=== PATIENT | female | born 1935 | race Two or more races ===

== ENCOUNTER 2018-07-25 08:24 | Observation (INO) ==
[2018-07-25] MEDS ORDERED: Sod Chloride 0.9% Inj 1,000 ML IV.SIG ONE (08:40)
--- NOTE | 2018-07-25 08:46 | ED ---
HPI General Chief Complaint: Syncope Stated Complaint: Syncope Complaint Time Seen by Provider: 07/25/18 08:31 Source: patient Mode of arrival: ambulatory Limitations: no limitations History of Present Illness HPI narrative: Patient is an 83-year-old female with history of hypertension, hyperlipidemia, asthma who presents to the emergency room after she had a syncopal episode today. Patient was working at [employer] and was at her desk and all of a sudden felt horrible. Patient reports that she went to the bathroom and sat down on the toilet and called her staffing program manager over. Clip [employer] Hanger Attacher reports that patient did had a syncopal, reports that when she awoke, she appeared confused. Denies any trauma to head/neck. Patient reports that she does not remember having a syncopal episode or being confused, patient reports that she just remembers feeling horrible. Patient denies any headache or dizziness, denies any chest pain or shortness of breath. Patient denies any abdominal pain, denies any nausea vomiting or diarrhea. Patient with no fever or chills, no other complaints. Patient reports that she currently feels 100% better. Reports that she has never felt like this in the past. Related Data Home Medications Medication Instructions Recorded Confirmed albuterol sulfate [Ventolin HFA] 1 puff INHALATION Q4-6H PRN 07/25/18 07/25/18 calcium carbonate-vitamin D3 1 tab PO Q12H 07/25/18 07/25/18 [Calcium 600 + D(3)] carvedilol [Coreg] 3.125 mg PO BID 07/25/18 07/25/18 coQ10 (ubiquinol) 100 mg PO DAILY 07/25/18 07/25/18 famotidine 40 mg PO DAILY 07/25/18 07/25/18 ipratropium-albuterol 3 ml INHALATION BID PRN 07/25/18 07/25/18 levothyroxine [Synthroid] 100 mcg PO DAILY 07/25/18 07/25/18 lorazepam 0.5 mg PO BID 07/25/18 07/25/18 multivitamin 1 tab PO DAILY 07/25/18 07/25/18 potassium chloride [Klor-Con 10] 10 meq PO DAILY 07/25/18 07/25/18 simvastatin 40 mg PO QPM 07/25/18 07/25/18 Allergies Allergy/AdvReac Type Severity Reaction Status Date / Time No Known Allergies Allergy Uncoded 08/20/14 08:14 Review of Systems ROS: all other systems reviewed are negative [facility] Medical History Medical History Asthma (Acute) High cholesterol (Acute) Hypertension (Acute) Surgical History Surgical History History of nephrectomy (Acute) Social History Social History Substance History: No History of Abuse Smoking Status: Never smoker How Often Do You Have a Drink Containing Alcohol: Never Recent Out of Country Travel within the Last 8 Weeks: No Immunization History Tetanus Immunization: <5 Years Exam Narrative Exam Narrative: GENERAL: NAD SKIN: Focused skin assessment warm/dry. HEAD: Atraumatic. Normocephalic. EYES: Pupils equal and round. No scleral icterus. No injection or drainage. ENT: No nasal bleeding or discharge. Mucous membranes pink and moist. NECK: Trachea midline. No JVD. CARDIOVASCULAR: Regular rate and rhythm. No murmur appreciated. RESPIRATORY: No accessory muscle use. Clear to auscultation. Breath sounds equal bilaterally. GASTROINTESTINAL: Abdomen soft, non-tender, nondistended. Hepatic and splenic margins not palpable. MUSCULOSKELETAL: No obvious deformities. No clubbing. No cyanosis. No edema. NEUROLOGICAL: Awake and alert. No obvious cranial nerve deficits. Motor grossly within normal limits. Normal speech. CN 2-12 grossly intact with no neurological deficits PSYCHIATRIC: Appropriate mood and affect; insight and judgment normal. Course Initial Documented Vital Signs Temperature 98.0 F 07/25/18 08:30 Pulse Rate 86 07/25/18 08:30 Respiratory Rate 18 07/25/18 08:30 Blood Pressure 131/58 L 07/25/18 08:30 Pulse Oximetry 99 07/25/18 08:30 Last Documented Vital Signs Temperature 98.0 F 07/25/18 08:30 Pulse Rate 86 07/25/18 08:30 Respiratory Rate 18 07/25/18 08:30 Blood Pressure 131/58 L 07/25/18 08:30 Pulse Oximetry 98 07/25/18 09:26 Medical Decision Making MDM Narrative Medical decision making narrative: During the course of the patients emergency department visit, the patients history, examination, and differential diagnosis were reviewed with the patient. The patient was placed on a court recording monitor with oximetry and frequent blood pressure monitoring. The patient had an IV access obtained and blood work sent for analysis. The patient was initially provided IVF The patients laboratory studies were reviewed as well as radiology studies Patient initial EKG showed normal sinus rhythm at 70 bpm, patient appears to be going to paroxysmal atrial fibrillation - she does not have a history of this. I am repeating her EKG right now, I do think that patient had a syncopal episode due to this paroxysmal atrial fibrillation. Patient understands need to be admitted to the hospital at this time for further workup and observation. EKG at 1037 shows atrial fib at 137 bpm, QT/QTc 155/235. i was going to order IV cardizem for HR control but she converted back to NSR at 85bpm. Aspirin was given to patient Case reviewed with Dr. Savage who accepts pt to service Medical Screen Exam Complete: Yes Emergency Medical Condition: Yes Differential Diagnosis Differential Diagnosis: ACS, arrythmia, electrolyte abnormality, ich, cva, tia Medical Records Medical records reviewed: Yes I reviewed the patient's medical records. Lab Data Result diagrams: 07/25/18 09:00 07/25/18 09:00 Lab Results 07/25/18 07/25/18 07/25/18 Range/Units 09:00 09:00 09:00 WBC 7.7 (4.0-11.0) th/mm3 RBC 3.88 L (4.00-5.30) mil/mm3 Hgb 12.0 (11.6-15.3) gm/dL Hct 36.3 (35.0-46.0) % MCV 93.6 (80.0-100.0) fL MCH 30.9 (27.0-34.0) pg MCHC 33.0 (32.0-36.0) % RDW 14.9 (11.6-17.2) % Plt Count 345 (150-450) th/mm3 MPV 9.3 (7.0-11.0) fL Neut % (Auto) 60.1 (16.0-70.0) % Lymph % (Auto) 29.4 (9.0-44.0) % Taylor % (Auto) 8.1 H (0.0-8.0) % Eos % (Auto) 1.6 (0.0-4.0) % Baso % (Auto) 0.8 (0.0-2.0) % Neut # (Auto) 4.6 (1.8-7.7) th/mm3 Lymph # (Auto) 2.2 (1.0-4.8) th/mm3 Taylor # (Auto) 0.6 (0.0-0.9) th/mm3 Eos # (Auto) 0.1 (0.0-0.4) th/mm3 Baso # (Auto) 0.1 (0.0-0.2) th/mm3 WBC Differential . Differential Comment Auto diff final PT 11.8 H (9.8-11.6) sec INR 1.2 Ratio APTT 25.7 (24.3-30.1) sec Sodium 136 (136-145) meq/L Potassium 4.3 (3.5-5.1) meq/L Chloride 102 (98-107) meq/L Carbon Dioxide 27.3 (21.0-32.0) meq/L Anion Gap 7 (5-15) meq/L BUN 16 (7-18) mg/dL Creatinine 1.32 H (0.50-1.00) mg/dL Estimated GFR 39 L (>89) mL/min Random Glucose 189 H (74-106) mg/dL Calcium 8.8 (8.5-10.1) mg/dL Troponin I 0.03 (0.02-0.05) ng/mL Imaging Data Radiologist's impression: Chest X-Ray 07/25/18 08:40 CONCLUSION: No acute cardiopulmonary process. Head CT 07/25/18 08:40 CONCLUSION: Negative CT Head non contrast. . ECG Data EKG Prior to Arrival: No Attestation: I personally reviewed and interpreted this ECG as follows: Interpretation: EKG at 0832: NSR at 78bpm, qt/qtc: 335/368, there are pvc's, no acute changes Discharge Plan Discharge Disposition Patient Disposition: 30 Still Patient Discharge Condition Condition: Fair Discharge Details Diagnosis: Syncope and collapse, Paroxysmal A-fib Physicians Team ED Provider: Kyleigh Presley Primary Care Provider: UNKNOWN, Rxs /Orders / Referrals /Forms Prescriptions: No Action multivitamin Tablet 1 tab PO DAILY RF: 0 ipratropium-albuterol 0.5 mg-3 mg(2.5 mg base)/3 mL Solution For Nebulization 3 ml INHALATION BID PRN (Reason: Shortness Of Breath) RF: 0 famotidine 40 mg Tablet 40 mg PO DAILY RF: 0 potassium chloride [Klor-Con 10] 10 mEq Tablet Extended Release 10 meq PO DAILY RF: 0 simvastatin 40 mg Tablet 40 mg PO QPM RF: 0 carvedilol [Coreg] 3.125 mg Tablet 3.125 mg PO BID RF: 0 levothyroxine [Synthroid] 100 mcg Tablet 100 mcg PO DAILY RF: 0 lorazepam 0.5 mg Tablet 0.5 mg PO BID RF: 0 albuterol sulfate [Ventolin HFA] 90 mcg/actuation Hfa Aerosol Inhaler 1 puff INHALATION Q4-6H PRN (Reason: Shortness Of Breath) RF: 0 calcium carbonate-vitamin D3 [Calcium 600 + D(3)] 600 mg(1,500mg) -400 unit Tablet 1 tab PO Q12H RF: 0 coQ10 (ubiquinol) 100 mg Capsule 100 mg PO DAILY RF: 0 Status ED Status: Pending Admission
--- NOTE | 2018-07-25 08:56 | CT ---
EXAM DATE: 07/25/2018 8:43 AM EDT AGE/SEX: 83 years / Female INDICATIONS: Syncope. CLINICAL DATA: This is the patient's initial encounter. Patient reports that signs and symptoms have been present for 1 day and indicates a pain score of 0/10. MEDICAL/SURGICAL HISTORY: Asthma. Hypertension. None. RADIATION DOSE: 34.17 CTDI (mGy) COMPARISON: No prior exams available for comparison. TECHNIQUE: CT of the head without contrast. Using automated exposure control and adjustment of the mA and/or kV according to patient size, radiation dose was kept as low as reasonably achievable to ob tain optimal diagnostic quality images. DICOM format image data is available electronically for revi ew and comparison. FINDINGS: Cerebrum: The ventricles are normal for age. No evidence of midline shift, mass lesion, hemorrhage or acute infarction. No extraaxial fluid collections are seen. Posterior Fossa: The cerebellum and brainstem are intact. The 4th ventricle is midline. The cerebe llopontine angle is unremarkable. Extracranial: The visualized portion of the orbits is intact. Skull: The calvaria is intact. No evidence of skull fracture. CONCLUSION: Negative CT Head non contrast. . Electronically signed by: Casey Mina MD 07/25/2018 8:55 AM EDT
[2018-07-25 09:18] LABS: Baso # (Auto) 0.1 th/mm3 (0.0-0.2); Baso % (Auto) 0.8 % (0.0-2.0); Eos # (Auto) 0.1 th/mm3 (0.0-0.4); Eos % (Auto) 1.6 % (0.0-4.0); Hematocrit 36.3 % (35.0-46.0); Lymph # (Auto) 2.2 th/mm3 (1.0-4.8); Lymph % (Auto) 29.4 % (9.0-44.0); Mean Corpuscular Hemoglobin 30.9 pg (27.0-34.0); Mean Corpuscular Volume 93.6 fL (80.0-100.0); Mean Platelet Volume 9.3 fL (7.0-11.0); Mono # (Auto) 0.6 th/mm3 (0.0-0.9); Mono % (Auto) 8.1 % (0.0-8.0); Neut # (Auto) 4.6 th/mm3 (1.8-7.7); Neut % (Auto) 60.1 % (16.0-70.0); Platelet Count 345 th/mm3 (150-450); Red Blood Count 3.88 mil/mm3 (4.00-5.30); Red Cell Distribution Width 14.9 % (11.6-17.2); White Blood Count 7.7 th/mm3 (4.0-11.0)
[2018-07-25 09:26] LABS: Activated Partial Thrombo Time 25.7 sec (24.3-30.1); INR 1.2 Ratio; Prothrombin Time 11.8 sec (9.8-11.6)
[2018-07-25 09:33] LABS: Calcium 8.8 mg/dL (8.5-10.1); Carbon Dioxide 27.3 meq/L (21.0-32.0); Potassium 4.3 meq/L (3.5-5.1)
[2018-07-25 09:37] LABS: Troponin I 0.03 ng/mL (0.02-0.05)
--- NOTE | 2018-07-25 09:46 | XR ---
EXAM DATE: 07/25/2018 8:40 AM EDT AGE/SEX: 83 years / Female INDICATIONS: Shortness of breath and dizziness. CLINICAL DATA: This is the patient's initial encounter. Patient reports that signs and symptoms have been present for 1 day and indicates a pain score of 0/10. MEDICAL/SURGICAL HISTORY: Hypercholesterolemia. Chronic obstructive pulmonary disease. None. COMPARISON: No prior exams available for comparison. FINDINGS: A single AP view of the chest demonstrates the lungs to be symmetrically aerated without evidence of mass, infiltrate or effusion. The cardiomediastinal contours are unremarkable. Osseous structures a re intact with a dextroscoliosis of the dorsal spine with associated degenerative spurring. Bilateral breast augmentation with capsular calcification. CONCLUSION: No acute cardiopulmonary process. Electronically signed by: Herve Yao MD 07/25/2018 9:45 AM EDT
[2018-07-25] MEDS ORDERED: Aspirin 325 MG Tablet PO ONE (10:32)
[2018-07-25] MEDS ORDERED: Sod Chloride 0.9% Inj 1,000 ML IV.CONT SCH (12:00)
--- NOTE | 2018-07-25 13:32 | US ---
EXAM DATE: 07/25/2018 12:00 AM EDT AGE/SEX: 83 years / Female INDICATIONS: Syncope. CLINICAL DATA: This is the patient's initial encounter. Patient reports that signs and symptoms have been present for 1 day and indicates a pain score of 0/10. MEDICAL/SURGICAL HISTORY: Hypertension. Hypercholesterolemia. Asthma. . Nephrectomy. COMPARISON: No prior exams available for comparison. VELOCITY PARAMETERS: ICA/CCA Ratio: Right 1.5 , Left 1.2 ICA: Right 97 cm/sec, Left 85 cm/sec CCA: Right 66 cm/sec, Left 68 cm/sec ECA: Right 66 cm/sec, Left 71 cm/sec Vertebral: Right 48 cm/sec antegrade, Left 48 cm/sec antegrade FINDINGS: Right Carotid: Mild arteriosclerotic plaque is visualized.The waveforms are within normal limits. Left Carotid: Mild arteriosclerotic plaque is visualized. The waveforms are within normal limits. Other: None. CONCLUSION: 1. Right Internal Carotid Artery: Mild visible plaque without significant stenosis. 2. Left Internal Carotid Artery: Mild visible plaque without significant stenosis. Electronically signed by: Delfino Mckeon MD 07/25/2018 1:31 PM EDT
--- NOTE | 2018-07-25 15:33 | P.HPIM ---
History of Present Illness Service: [facility] Hospitalist Primary Care Physician: UNKNOWN Chief Complaint: Syncope History of Present Illness: 83-year-old female with a medical history significant for hypertension, hypothyroidism, hyperlipidemia, and asthma sent to the emergency room after a witnessed syncopal episode today. 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 She went to the bathroom sat down. Her eligibility manager went to check on her and she eventually had a syncopal episode. She regained consciousness within a few minutes. She does not remember the actual episode. In the emergency room, the patient is noting to have paroxysmal atrial fibrillation. Her heart rate is ranging anywhere from the 150s and would spontaneously convert to sinus rhythm with rate in the 80s. She denies any chest pain or shortness of breath. Currently she reports she is feeling great and is ready to go home. She denies any history of atrial fibrillation. She states she follows with a deck builder and has had Holter monitors before. She takes carvedilol twice daily for hypertension. She reports compliance with this medication. She took it earlier this morning around 6 and a syncopal event occurred about 3 hours later. - Diagnosis (1) Hypertension (2) Hyperlipidemia (3) Hypothyroidism (4) Syncope and collapse (5) Paroxysmal A-fib Review of Systems All other systems reviewed negative except as stated in HPI [facility] - History History Provided By: Patient - Medical History Medical History: Medical History (Last Updated 07/25/18 @ 15:20 by Katelynn Savage MD) Asthma High cholesterol Hypertension Hypothyroidism - Surgical History Surgical History: Surgical History (Last Reviewed 07/25/18 @ 15:19 by Katelynn Savage MD) History of nephrectomy - Family History Family History: Family History (Last Updated 07/25/18 @ 15:19 by Katelynn Savage MD) Other Family history reviewed with no changes - Tobacco History Smoking Status: Never smoker - Alcohol History How Often Do You Have a Drink Containing Alcohol: Never - Substance Use History Substance History: No History of Abuse - Travel History Recent Travel Out of the Country Within the Last 8 Weeks: No - Immunization History Tetanus Immunization: <5 Years Medications and Allergies Active Medications: Active Medications Sodium Chloride (Ns Inj) 1,000 mls @ 100 mls/hr IV.CONT .Q10H DARCY Stop: 07/25/18 21:59 Last Admin: 07/25/18 13:35 Dose: 100 mls/hr Sodium Chloride (Ns Flush) 2 ml IV.FLUSH PRN PRN PRN Reason: FLUSH AFTER USING IV ACCESS Allergies Allergy/AdvReac Type Severity Reaction Status Date / Time No Known Allergies Allergy Uncoded 08/20/14 08:14 Home Medications Medication Instructions Recorded Confirmed Type albuterol sulfate [Ventolin HFA] 1 puff INHALATION Q4-6H PRN 07/25/18 07/25/18 History calcium carbonate-vitamin D3 1 tab PO Q12H 07/25/18 07/25/18 History [Calcium 600 + D(3)] carvedilol [Coreg] 3.125 mg PO BID 07/25/18 07/25/18 History coQ10 (ubiquinol) 100 mg PO DAILY 07/25/18 07/25/18 History famotidine 40 mg PO DAILY 07/25/18 07/25/18 History ipratropium-albuterol 3 ml INHALATION BID PRN 07/25/18 07/25/18 History levothyroxine [Synthroid] 100 mcg PO DAILY 07/25/18 07/25/18 History lorazepam 0.5 mg PO BID 07/25/18 07/25/18 History multivitamin 1 tab PO DAILY 07/25/18 07/25/18 History potassium chloride [Klor-Con 10] 10 meq PO DAILY 07/25/18 07/25/18 History simvastatin 40 mg PO QPM 07/25/18 07/25/18 History Exam Vital signs: Vital Signs 07/25/18 08:30 07/25/18 09:26 07/25/18 13:36 Temperature 98.0 F Pulse Rate 86 93 H Respiratory Rate 18 16 Blood Pressure 131/58 L 168/73 H Pulse Oximetry 99 98 Intake & Output 07/24/18 07/25/18 07/25/18 18:59 06:59 18:59 Intake Total 1000 / 1000 Balance 1000 / 1000 Intake: IV 1000 / 1000 NS Inj 1,000 ML @ Wide Open IV. 1000 / 1000 SIG BOLUS ONE Rx#:[id number] Narrative: CONSTITUTIONAL/GENERAL: Pleasant elderly female in no acute distress. Vital signs reviewed SKIN: No jaundice, rashes, or concerning lesions. Not diaphoretic. HEAD: Atraumatic. Normocephalic. EYES: Pupils equal and round and reactive. Extra ocular motions are intact. No scleral icterus. No injection or drainage. ENT: Hearing grossly normal. Nose without drainage. Throat without visible erythema, exudates, masses, or lesions. NECK: Trachea midline. Neck is supple, non-tender. No palpable thyroid enlargement or nodularity. CARDIOVASCULAR: Normal rate in the 90s and irregular rhythm. Peripheral pulses 2 + and symmetric. RESPIRATORY/CHEST: Symmetric, unlabored respirations. Breath sounds equal and clear to auscultation bilaterally. No wheezes, crackles, rales, or rhonchi. GASTROINTESTINAL: Abdomen soft, non-tender, non-distended. No hepato- splenomegaly, or palpable masses. No guarding. Bowel sounds present. MUSCULOSKELETAL: Extremities without clubbing, cyanosis, or edema. No joint tenderness or effusion noted. No calf tenderness. No mottling or clubbing. NEUROLOGICAL: Awake and alert. Motor and sensory grossly within normal limits. Follows commands. Move all extremities spontaneously. No focal deficits. PSYCHIATRIC: No obvious mood problems. No apparent hallucinations or other psychotic thought process. Results - Labs CBC & Chem 7: 07/25/18 09:00 07/25/18 09:00 Labs: Short CBC 07/25/18 Range/Units 09:00 WBC 7.7 (4.0-11.0) th/mm3 Hgb 12.0 (11.6-15.3) gm/dL Hct 36.3 (35.0-46.0) % Plt Count 345 (150-450) th/mm3 [facility] 07/25/18 09:00 Sodium 136 Potassium 4.3 Chloride 102 Carbon Dioxide 27.3 BUN 16 Creatinine 1.32 H Calcium 8.8 Cardiac Enzymes 07/25/18 Range/Units 09:00 Troponin I 0.03 (0.02-0.05) ng/mL - Imaging Impressions Carotid Doppler Study 07/25/18 00:00 CONCLUSION: 1. Right Internal Carotid Artery: Mild visible plaque without significant stenosis. 2. Left Internal Carotid Artery: Mild visible plaque without significant stenosis. Chest X-Ray 07/25/18 08:40 CONCLUSION: No acute cardiopulmonary process. Head CT 07/25/18 08:40 CONCLUSION: Negative CT Head non contrast. . Caprini VTE Risk Assessment Caprini VTE Risk Assessment: Moderate/High Risk (score >= 2) Caprini Risk Assessment Model: Point Value = 1 Point Value = 2 Point Value = 3 Point Value = 5 Age 41-60 Minor surgery BMI > 25 kg/m2 Swollen legs Varicose veins or History of unexplained or recurrent spontaneous Oral contraceptives or hormone replacement Sepsis (< 1 month) Serious lung disease, including pneumonia (< 1 month) Abnormal pulmonary function Acute myocardial infarction Congestive heart failure (< 1 month) History of inflammatory bowel disease Medical patient at bed rest Age 61-74 Arthroscopic surgery Major open surgery (> 45 min) Laparoscopic surgery (> 45 min) Malignancy Confined to bed (> 72 hours) Immobilizing plaster cast Central venous access Age >= 75 History of VTE Family history of VTE Factor V Leiden Prothrombin [id number] Lupus anticoagulant Anticardiolipin antibodies Elevated serum homocysteine Heparin-induced thrombocytopenia Other congenital or acquired thrombophilia Stroke (< 1 month) Elective arthroplasty Hip, pelvis, or leg fracture Acute spinal cord injury (< 1 month) Prophylaxis Regimen: Total Risk Factor Score Risk Level Prophylaxis Regimen 0-1 Low Early ambulation 2 Moderate Order ONE of the following: *Sequential Compression Device (SCD) *Heparin 5000 units SQ BID 3-4 Higher Order ONE of the following medications: *Heparin 5000 units SQ TID *Enoxaparin/Lovenox 40 mg SQ daily (WT < 150 kg, CrCl > 30 mL/min) *Enoxaparin/Lovenox 30 mg SQ daily (WT < 150 kg, CrCl > 10-29 mL/min) *Enoxaparin/Lovenox 30 mg SQ BID (WT < 150 kg, CrCl > 30 mL/min) AND/OR *Sequential Compression Device (SCD) 5 or more Highest Order ONE of the following medications: *Heparin 5000 units SQ TID (Preferred with Epidurals) *Enoxaparin/Lovenox 40 mg SQ daily (WT < 150 kg, CrCl > 30 mL/min) *Enoxaparin/Lovenox 30 mg SQ daily (WT < 150 kg, CrCl > 10-29 mL/min) *Enoxaparin/Lovenox 30 mg SQ BID (WT < 150 kg, CrCl > 30 mL/min) AND *Sequential Compression Device (SCD) Assessment and Plan - Assessment (1) Hypertension Code(s): I10 - Essential (primary) hypertension Status: Acute (2) Hyperlipidemia Code(s): E78.5 - Hyperlipidemia, unspecified Status: Acute (3) Hypothyroidism Code(s): E03.9 - Hypothyroidism, unspecified Status: Acute (4) Syncope and collapse Code(s): R55 - Syncope and collapse Status: Acute (5) Paroxysmal A-fib Code(s): I48.0 - Paroxysmal atrial fibrillation Status: Acute - Plan 83-year-old female here temporarily for work at [employer]. She normally resides in [place] admitted with: Syncope and collapse/paroxysmal atrial fibrillation: EKG reviewed. Currently back in Afib with rate around 90's. BP elevated - Syncopal episode could be secondary to A. fib with RVR. Patient is having paroxysmal episodes and would spontaneously convert back and forth to sinus rhythm -She reports compliance with Coreg which she took earlier this morning. - Hold Coreg. Will start Cardizem at 30 mg Q6hrs while waiting for Cardiology input - [id number] is 4 therefore anticoagulation indicated. Will defer to Cardiology. - Check Carotid US and TSH - Trend Cardiac enzymes. Hypertension: Normally takes Coreg which she took earlier this morning. -Blood pressure increasing. -We will see how she responds to Cardizem. - PRN hydralazine as needed. Probable CKD: Patient has one functioning kidney. Baseline renal functions unknown. - Gentle IV hydration. Follow up labs in AM Hypothyroidism: - Patient reports she has been stable on the same dose of levothyroxine. - Check TSH. Continue levothyroxine. Hyperlipidemia: - Continue statin GI prophylaxis: Stool softener PRN constipation. DVT PPx: Heparin
[2018-07-25] MEDS ORDERED: hydrALAZINE HCl Inj 20 MG/ML Vial IV.PUSH PRN (16:03)
[2018-07-25] MEDS: Heparin - SQ 10,000 UNITS/ML Vial SQ SCH (16:44)
[2018-07-25] MEDS: dilTIAZem 30 MG Tablet PO SCH ×3 (16:44→20:34)
[2018-07-25 17:17] LABS: Thyroid Stimulating Hormone 1.7 uIU/mL (0.358-3.740)
--- NOTE | 2018-07-25 18:30 | P.CONCA ---
History of Present Illness Service: Cardiology Consult date: 07/25/18 Requesting Physician: Katelynn Savage Reason for Consult: Questionable paroxysmal atrial fibrillation Primary Care Provider: UNKNOWN Chief Complaint: Syncope History of Present Illness: This is a very pleasant 83-year-old female with a history of hypertension, hypothyroidism, hyperlipidemia and asthma. She was brought into the emergency department today after a witnessed syncopal episode. She states that she was working on employee benefits and started not feeling well. Upon not feeling well she decided to go to the bathroom and sat down. While in the bathroom her numerical analysis group manager came to check on her and she had a syncopal episode. She is unsure how long she had passed out and does not remember the event. She informed me that recently her high school social studies teacher had placed her on a monitor for 2 weeks but she never received the results. . Current, she denies any CP, pressure, palpitations, dizziness, edema or SOB. Review of Systems All other systems reviewed negative except as stated in HPI [facility] - History History Provided By: Patient - Medical History Medical History: Medical History (Last Updated 07/25/18 @ 15:20 by Katelynn Savage MD) Asthma High cholesterol Hypertension Hypothyroidism - Surgical History Surgical History: Surgical History (Last Reviewed 07/25/18 @ 15:19 by Katelynn Savage MD) History of nephrectomy - Family History Family History: Family History (Last Updated 07/25/18 @ 15:19 by Katelynn Savage MD) Other Family history reviewed with no changes - Tobacco History Second Hand Smoke Exposure: No Smoking Status: Never smoker - Alcohol History How Often Do You Have a Drink Containing Alcohol: Never - Substance Use History Substance History: No History of Abuse - Travel History Recent Travel Out of the Country Within the Last 8 Weeks: No - Immunization History Tetanus Immunization: <5 Years Medications and Allergies Allergies Allergy/AdvReac Type Severity Reaction Status Date / Time No Known Allergies Allergy Uncoded 08/20/14 08:14 Home Medications Medication Instructions Recorded Confirmed Type albuterol sulfate [Ventolin HFA] 1 puff INHALATION Q4-6H PRN 07/25/18 07/25/18 History calcium carbonate-vitamin D3 1 tab PO Q12H 07/25/18 07/25/18 History [Calcium 600 + D(3)] carvedilol [Coreg] 3.125 mg PO BID 07/25/18 07/25/18 History coQ10 (ubiquinol) 100 mg PO DAILY 07/25/18 07/25/18 History famotidine 40 mg PO DAILY 07/25/18 07/25/18 History ipratropium-albuterol 3 ml INHALATION BID PRN 07/25/18 07/25/18 History levothyroxine [Synthroid] 100 mcg PO DAILY 07/25/18 07/25/18 History lorazepam 0.5 mg PO BID 07/25/18 07/25/18 History multivitamin 1 tab PO DAILY 07/25/18 07/25/18 History potassium chloride [Klor-Con 10] 10 meq PO DAILY 07/25/18 07/25/18 History simvastatin 40 mg PO QPM 07/25/18 07/25/18 History Active Medications: Active Medications Albuterol (Ventolin Hfa Inh) 1 puff INH Q4H PRN PRN Reason: SHORTNESS OF BREATH Albuterol (Duoneb Neb (Prn)) 1 ampul NEB BID NEB PRN PRN Reason: Shortness Of Breath Calcium/Vitamin D (Oscal With D 250/125 Mg) 2 tab PO Q12HR [facility] Diltiazem HCl (Cardizem) 30 mg PO QID [facility] Last Admin: 07/25/18 16:44 Dose: 30 mg Famotidine (Pepcid) 40 mg PO DAILY [facility] Heparin Sodium (Porcine) (Heparin Inj) 5,000 units SQ Q12H [facility] Last Admin: 07/25/18 16:44 Dose: 5,000 units Hydralazine HCl (Apresoline Inj) 10 mg IV.PUSH Q6H PRN PRN Reason: SEE LABEL COMMENTS Sodium Chloride (Ns Inj) 1,000 mls @ 100 mls/hr IV.CONT .Q10H [facility] Stop: 07/25/18 21:59 Last Admin: 07/25/18 13:35 Dose: 100 mls/hr Levothyroxine Sodium (Synthroid) 100 mcg PO DAILY@0600 [facility] Lorazepam (Ativan) 0.5 mg PO BID [facility] Multivitamins (Theragran) 1 tab PO DAILY [facility] Pravastatin Sodium (Pravachol) 80 mg PO HS [facility] Sodium Chloride (Ns Flush) 2 ml IV.FLUSH PRN PRN PRN Reason: FLUSH AFTER USING IV ACCESS Exam Vital signs: Vital Signs 10/19/18 08:30 07/25/18 09:26 07/25/18 13:36 Temperature 98.0 F Pulse Rate 86 93 H Respiratory Rate 18 16 Blood Pressure 131/58 L 168/73 H Pulse Oximetry 99 98 07/25/18 16:29 Temperature 97.6 F Pulse Rate 92 H Respiratory Rate 20 Blood Pressure 196/72 H Pulse Oximetry 98 Intake & Output 07/24/18 07/25/18 07/25/18 18:59 06:59 18:59 Intake Total 1000 / 1000 Balance 1000 / 1000 Weight 59.874 kg Intake: IV 1000 / 1000 NS Inj 1,000 ML @ Wide Open IV. 1000 / 1000 SIG BOLUS ONE Rx#:[id number] Other: Weight On Admission 59.874 kg - Constitutional no acute distress - Routine HEENT Exam Head: Present: normocephalic Eye: Present: PERRL ENT: Present: mucous membranes moist - Routine Neck Exam Present: full ROM - Routine Respiratory Exam Present: CTA bilaterally - Routine Cardiovascular Exam Present: S1, S2, tachycardia, irregular rhythm. Absent: murmur, gallop, rubs - Routine Abdominal Exam Present: normoactive bowel sounds - Routine Extremities Exam Present: full ROM, pulses intact, normal capillary refill. Absent: cyanosis, clubbing, edema - Routine Skin Exam Present: intact - Routine Neurological Exam Present: oriented X3 Results 07/25/18 09:00 07/25/18 09:00 Cardiac Enzymes 07/25/18 07/25/18 Range/Units 09:00 14:26 Troponin I 0.03 0.04 (0.02-0.05) ng/mL Coagulation 07/25/18 Range/Units 09:00 PT 11.8 H (9.8-11.6) sec APTT 25.7 (24.3-30.1) sec CBC 07/25/18 Range/Units 09:00 WBC 7.7 (4.0-11.0) th/mm3 RBC 3.88 L (4.00-5.30) mil/mm3 Hgb 12.0 (11.6-15.3) gm/dL Hct 36.3 (35.0-46.0) % Plt Count 345 (150-450) th/mm3 Neut # (Auto) 4.6 (1.8-7.7) th/mm3 Lymph # (Auto) 2.2 (1.0-4.8) th/mm3 [place] # (Auto) 0.6 (0.0-0.9) th/mm3 Eos # (Auto) 0.1 (0.0-0.4) th/mm3 Baso # (Auto) 0.1 (0.0-0.2) th/mm3 Comprehensive Metabolic Panel 07/25/18 Range/Units 09:00 Sodium 136 (136-145) meq/L Potassium 4.3 (3.5-5.1) meq/L Chloride 102 (98-107) meq/L Carbon Dioxide 27.3 (21.0-32.0) meq/L BUN 16 (7-18) mg/dL Creatinine 1.32 H (0.50-1.00) mg/dL Calcium 8.8 (8.5-10.1) mg/dL Intake and Output 07/25/18 07/25/18 07/25/18 06:59 14:59 22:59 Intake Total 1000 / 1000 Balance 1000 / 1000 Intake: IV 1000 / 1000 NS Inj 1,000 ML @ Wide Open IV. 1000 / 1000 SIG BOLUS ONE Rx#:[id number] Other: Weight 59.874 kg Weight On Admission 59.874 kg Patient Weight 07/26/18 06:59 Weight 59.874 kg - Imaging and Cardiology Imaging: Impressions Carotid Doppler Study 07/25/18 00:00 CONCLUSION: 1. Right Internal Carotid Artery: Mild visible plaque without significant stenosis. 2. Left Internal Carotid Artery: Mild visible plaque without significant stenosis. Chest X-Ray 07/25/18 08:40 CONCLUSION: No acute cardiopulmonary process. Head CT 07/25/18 08:40 CONCLUSION: Negative CT Head non contrast. . Assessment and Plan - Assessment (1) Syncope and collapse Code(s): R55 - Syncope and collapse Status: Acute (2) Paroxysmal A-fib Code(s): I48.0 - Paroxysmal atrial fibrillation Status: Acute (3) Hypertension Code(s): I10 - Essential (primary) hypertension Status: Acute (4) Hyperlipidemia Code(s): E78.5 - Hyperlipidemia, unspecified Status: Acute (5) Hypothyroidism Code(s): E03.9 - Hypothyroidism, unspecified Status: Acute - Plan Patient currently in ST with frequent PAC's. Continue to monitor on telemetry. Continue current cardiac treatment plan and adjust as needed. We will continue to follow the patient during her hospitalization. She will follow up with her high school social studies teacher in [facility] after discharge. Patient seen and evaluated by Dr. Gandhi who participated in care, management and decision-making. - Attending Attestation Patient seen and examined. I reviewed and agree with the evaluation and plan as presented. Continue monitoring on telemetry. F/u with her high school social studies teacher in [facility].
[2018-07-25] MEDS: LORazepam 0.5 MG Tablet PO SCH (20:33)
[2018-07-25] MEDS: Calcium/Vitamin D 250/125 MG Tablet PO SCH (20:38)
--- NOTE | 2018-07-25 21:16 | ECG ---
Date Performed: 07/25/2018 Time Performed: 08:32:42 PTAGE: 83 years EKG: Sinus rhythm WITH FREQUENT SUPRAVENTRICULAR PREMATURE COMPLEXES NONSPECIFIC T-WAVE ABNORMALITY ABNORMAL RHYTHM EC G NO PREVIOUS TRACING DOCTOR: Obinna Mcclellan Interpretating Date/Time 07/25/2018 21:15:38
--- NOTE | 2018-07-25 21:18 | ECG ---
Date Performed: 07/25/2018 Time Performed: 10:37:19 PTAGE: 83 years EKG: ATRIAL FIBRILLATION WITH RAPID VENTRICULAR RESPONSE NONSPECIFIC T WAVE CHANGE Compared to p revious tracing, THERE IS A RHYTHM CHANGE FROM Sinus rhythm TO ATRIAL FIBRILLATION. Clinical correlation is recommended ABNORMAL RHYTHM ECG PREVIOUS TRACING : 07/25/2018 08.32 DOCTOR: Obinna Mcclellan Interpretating Date/Time 07/25/2018 21:17:23
[2018-07-26] MEDS ORDERED: Sodium Chloride 0.9% 2 ML Flush PRN IV.FLUSH (01:10)
[2018-07-26 03:13] VITALS: RESP 16
[2018-07-26] MEDS: Heparin - SQ 10,000 UNITS/ML Vial SQ SCH (05:05)
[2018-07-26] MEDS ORDERED: Levothyroxine 100 MCG Tablet PO SCH (06:00)
[2018-07-26] MEDS: LORazepam 0.5 MG Tablet PO SCH (08:40)
[2018-07-26] MEDS: dilTIAZem 30 MG Tablet PO SCH ×2 (08:41→12:43)
[2018-07-26] MEDS: Calcium/Vitamin D 250/125 MG Tablet PO SCH (08:41)
[2018-07-26] MEDS ORDERED: Non-Formulary Drug (Coq10 (Ubiquinol) [Coq10 (Ubiquinol)] 100 MG) PO SCH (09:00)
[2018-07-26] MEDS ORDERED: Famotidine 20 MG Tablet PO SCH (09:00)
[2018-07-26] MEDS ORDERED: Sodium Chloride 0.9% 2 ML Flush BID IV.FLUSH SCH (09:00)
--- NOTE | 2018-07-26 11:29 | P.PN ---
Subjective Interval history: Follow-up for atrial fibrillation with RVR and syncopal episode. Patient reports feeling much better today. She denies any lightheadedness or dizziness. Denies any further syncopal episodes. Denies any chest pain, palpitations, shortness of breath. She has been able in the hallways without difficulty. She wants to go home. Discussed her chads 2 Vasc score of 4 and her risk for stroke, patient agrees to starting anticoagulation. Patient did have episodes of RVR this morning around 10 AM with heart rate in the [id number] , however improved to 70s after receiving oral Cardizem. Physical Exam Vital signs: Vital Signs 07/25/18 13:36 07/25/18 16:29 07/25/18 18:58 Temperature 97.6 F Pulse Rate 93 H 92 H Respiratory Rate 16 20 Blood Pressure 168/73 H 196/72 H 138/81 Pulse Oximetry 98 07/25/18 19:34 07/25/18 23:40 07/26/18 03:11 Temperature 97.7 F 98.5 F 98.5 F Pulse Rate 79 83 82 Respiratory Rate 18 17 16 Blood Pressure 145/63 H 107/55 L 122/60 Pulse Oximetry 96 97 96 07/26/18 08:37 Temperature 98.1 F Pulse Rate 80 Respiratory Rate 16 Blood Pressure 139/85 Pulse Oximetry 96 Intake & Output 07/25/18 07/26/18 07/26/18 18:59 06:59 18:59 Intake Total 1800 / 1800 Balance 1800 / 1800 Weight 59.874 kg 59.874 kg Intake: IV 1800 / 1800 NS Inj 1,000 ML @ 100 mls/hr IV 800 / 800 .CONT .Q10H [facility] Rx#:[id number] NS Inj 1,000 ML @ Wide Open IV. 1000 / 1000 SIG BOLUS ONE Rx#:[id number] Other: # Voids 3 Date of Last Bowel Movement 07/25/18 Weight On Admission 59.874 kg Narrative: GENERAL: Well-nourished, well-developed pleasant elderly female patient in [facility]. Ambulating the hallway. SKIN: Warm and dry. No rash. HEENT: Normocephalic. Atraumatic. Pupils equal and round. Mucous membranes pink and moist. CARDIOVASCULAR: Irregular rate and rhythm. No murmur appreciated. RESPIRATORY: No accessory muscle use. Clear to auscultation. Breath sounds equal bilaterally. GASTROINTESTINAL: Abdomen soft, non-tender, nondistended. Normoactive bowel sounds x4. MUSCULOSKELETAL: No obvious deformities. Extremities without clubbing, cyanosis , or edema. NEUROLOGICAL: Awake and alert. No obvious cranial nerve deficits. Motor grossly within normal limits. Moving all extremities spontaneously. Normal speech. PSYCHIATRIC: Appropriate mood and affect; insight and judgment normal. Results - Labs CBC & Chem 7: 07/25/18 09:00 07/25/18 09:00 Laboratory Results - last 24 hr 07/25/18 07/25/18 07/25/18 09:00 14:26 14:26 Sodium 136 Potassium 4.3 Chloride 102 Carbon Dioxide 27.3 Anion Gap 7 BUN 16 Creatinine 1.32 H Estimated GFR 39 L Random Glucose 189 H Calcium 8.8 Troponin I 0.03 0.04 TSH 1.700 Cancelled 07/25/18 20:57 Sodium Potassium Chloride Carbon Dioxide Anion Gap BUN Creatinine Estimated GFR Random Glucose Calcium Troponin I 0.04 TSH - Imaging Impressions Carotid Doppler Study 07/25/18 00:00 CONCLUSION: 1. Right Internal Carotid Artery: Mild visible plaque without significant stenosis. 2. Left Internal Carotid Artery: Mild visible plaque without significant stenosis. Assessment and Plan - Assessment (1) Hypertension Code(s): I10 - Essential (primary) hypertension Status: Acute (2) Hyperlipidemia Code(s): E78.5 - Hyperlipidemia, unspecified Status: Acute (3) Hypothyroidism Code(s): E03.9 - Hypothyroidism, unspecified Status: Acute (4) Syncope and collapse Code(s): R55 - Syncope and collapse Status: Acute (5) Paroxysmal A-fib Code(s): I48.0 - Paroxysmal atrial fibrillation Status: Acute - Plan 83-year-old female with a medical history significant for hypertension, hypothyroidism, hyperlipidemia, and asthma sent to the emergency room after a witnessed syncopal episode today. 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 The patient lives in [facility]. Syncope and collapse secondary to paroxysmal atrial fibrillation with RVR: Initial EKG showed afib with RVR HR 137bpm, then converted spontaneously to NSR with HR 80s in the ED. Patient has been intermittently in afib and sinus rhythm throughout admission. -Syncopal episode likely secondary to A. fib with RVR. Patient is having paroxysmal episodes and would spontaneously convert back and forth to sinus rhythm -She reports compliance with Coreg 3.125mg bid, will continue which she took earlier this morning. -Started on Cardizem 30 mg Q6hrs for now -[id number] is 4, anticoagulation indicated, discussed risks/benefits with the patient, agrees to start Eliquis -Carotid U/S shows plaque, no stenosis -Serial cardiac enzymes negative x3 -Cardiology consulted, appreciate recommendations from Dr. Gandhi Hypertension: Normally only takes Coreg, compliant with meds. BP up to 196/72 -Responding well to cardizem started -PRN hydralazine as needed. -BP improved Probable CKD: Patient has one functioning kidney. Baseline renal functions unknown. -Give gentle IV hydration. -Outpatient f/up Hypothyroidism: chronic -Patient reports she has been stable on the same dose of levothyroxine. -TSH wnl -Continue levothyroxine. Hyperlipidemia: chronic -Continue statin GI prophylaxis: Stool softener PRN constipation. DVT PPx: Eliquis Discharge Planning: Likely discharge today when cleared by cardiology. Discharge patient to home Condition on discharge: Stable Heart Healthy Diet as tolerated Ad [place] activity Rx written: Mandeep Barnes Follow-up with primary care physician and cardiology
[2018-07-26 15:24] VITALS: BP 138/63; PULSE 70; TEMP 98.1; O2SAT 97
--- NOTE | 2018-07-26 16:16 | P.PNCA ---
Subjective Interval history: Patient denies any CP, pressure, palpitations, dizziness, edema or SOB. Patient states that she is feeling very well and is ready to go home. Medications and Allergies Allergies Allergy/AdvReac Type Severity Reaction Status Date / Time No Known Allergies Allergy Uncoded 08/20/14 08:14 Home Medications Medication Instructions Recorded Confirmed Type albuterol sulfate [Ventolin HFA] 1 puff INHALATION Q4-6H PRN 07/25/18 07/25/18 History calcium carbonate-vitamin D3 1 tab PO Q12H 07/25/18 07/25/18 History [Calcium 600 + D(3)] carvedilol [Coreg] 3.125 mg PO BID 07/25/18 07/25/18 History coQ10 (ubiquinol) 100 mg PO DAILY 07/25/18 07/25/18 History famotidine 40 mg PO DAILY 07/25/18 07/25/18 History [id number] 1 inh INHALATION DAILY 07/25/18 07/25/18 History [Trelegy Ellipta] ipratropium-albuterol 3 ml INHALATION BID PRN 07/25/18 07/25/18 History levothyroxine [Synthroid] 100 mcg PO DAILY 07/25/18 07/25/18 History lorazepam 0.5 mg PO BID 07/25/18 07/25/18 History multivitamin 1 tab PO DAILY 07/25/18 07/25/18 History potassium chloride [Klor-Con 10] 10 meq PO DAILY 07/25/18 07/25/18 History simvastatin 40 mg PO QPM 07/25/18 07/25/18 History Active Medications: Active Medications Albuterol (Ventolin Hfa Inh) 1 puff INH Q4H PRN PRN Reason: SHORTNESS OF BREATH Last Admin: 07/25/18 21:23 Dose: 1 puff Albuterol (Duoneb Neb (Prn)) 1 ampul NEB BID NEB PRN PRN Reason: Shortness Of Breath Apixaban (Eliquis) 5 mg PO BID [facility] Last Admin: 07/26/18 15:25 Dose: 5 mg Calcium/Vitamin D (Oscal With D 250/125 Mg) 2 tab PO Q12HR [facility] Last Admin: 07/26/18 08:41 Dose: 2 tab Carvedilol (Coreg) 3.125 mg PO BID [facility] Last Admin: 07/26/18 08:41 Dose: 3.125 mg Diltiazem HCl (Cardizem) 30 mg PO QID [facility] Last Admin: 07/26/18 12:43 Dose: 30 mg Famotidine (Pepcid) 20 mg PO DAILY [facility] Hydralazine HCl (Apresoline Inj) 10 mg IV.PUSH Q6H PRN PRN Reason: SEE LABEL COMMENTS Levothyroxine Sodium (Synthroid) 100 mcg PO DAILY@0600 [facility] Last Admin: 07/26/18 05:06 Dose: Not Given Lorazepam (Ativan) 0.5 mg PO BID [facility] Last Admin: 07/26/18 08:40 Dose: 0.5 mg Multivitamins (Theragran) 1 tab PO DAILY [facility] Last Admin: 07/26/18 08:40 Dose: 1 tab Pravastatin Sodium (Pravachol) 80 mg PO HS [facility] Last Admin: 07/25/18 20:33 Dose: 80 mg Sodium Chloride (Ns Flush) 2 ml IV.FLUSH BID [facility] Last Admin: 07/26/18 08:42 Dose: 2 ml Sodium Chloride (Ns Flush) 2 ml IV.FLUSH PRN PRN PRN Reason: FLUSH AFTER USING IV ACCESS Physical Exam Vital signs: Vital Signs 07/25/18 16:29 07/25/18 18:58 07/25/18 19:34 Temperature 97.6 F 97.7 F Pulse Rate 92 H 79 Respiratory Rate 20 18 Blood Pressure 196/72 H 138/81 145/63 H Pulse Oximetry 98 96 07/25/18 23:40 07/26/18 03:11 07/26/18 08:37 Temperature 98.5 F 98.5 F 98.1 F Pulse Rate 83 82 80 Respiratory Rate 17 16 16 Blood Pressure 107/55 L 122/60 139/85 Pulse Oximetry 97 96 96 07/26/18 12:40 07/26/18 13:17 07/26/18 15:22 Temperature 98.5 F 98.0 F 98.1 F Pulse Rate 70 74 70 Respiratory Rate 16 16 16 Blood Pressure 133/60 144/65 H 138/63 Pulse Oximetry 97 98 97 Intake & Output 07/25/18 07/26/18 07/26/18 18:59 06:59 18:59 Intake Total 1800 / 1800 Balance 1800 / 1800 Weight 59.874 kg 59.874 kg Intake: IV 1800 / 1800 NS Inj 1,000 ML @ 100 mls/hr IV 800 / 800 .CONT .Q10H [facility] Rx#:[id number] NS Inj 1,000 ML @ Wide Open IV. 1000 / 1000 SIG BOLUS ONE Rx#:[id number] Other: # Voids 3 Date of Last Bowel Movement 07/25/18 07/26/18 Weight On Admission 59.874 kg - Constitutional no acute distress - Routine HEENT Exam Head: Present: normocephalic Eye: Present: PERRL ENT: Present: mucous membranes moist - Routine Neck Exam Present: full ROM - Routine Respiratory Exam Present: CTA bilaterally - Routine Cardiovascular Exam Present: S1, S2, irregular rhythm. Absent: murmur, gallop, rubs Comments: Episodes of atrial fib. - Routine Abdominal Exam Present: normoactive bowel sounds - Routine Extremities Exam Present: full ROM, pulses intact, normal capillary refill. Absent: cyanosis, clubbing, edema - Routine Skin Exam Present: intact. Absent: cyanosis - Routine Neurological Exam Present: oriented X3 - Detailed Neurological Exam: Coma Scale Eye Opening: Spontaneous Verbal Response: Oriented Motor Response: Obey commands Angie Coma Scale Total: 15 - Routine Psychiatric Exam Present: normal affect Results 07/25/18 09:00 07/25/18 09:00 Cardiac Enzymes 07/25/18 07/25/18 07/25/18 Range/Units 09:00 14:26 20:57 Troponin I 0.03 0.04 0.04 (0.02-0.05) ng/mL Coagulation 07/25/18 Range/Units 09:00 PT 11.8 H (9.8-11.6) sec APTT 25.7 (24.3-30.1) sec CBC 07/25/18 Range/Units 09:00 WBC 7.7 (4.0-11.0) th/mm3 RBC 3.88 L (4.00-5.30) mil/mm3 Hgb 12.0 (11.6-15.3) gm/dL Hct 36.3 (35.0-46.0) % Plt Count 345 (150-450) th/mm3 Neut # (Auto) 4.6 (1.8-7.7) th/mm3 Lymph # (Auto) 2.2 (1.0-4.8) th/mm3 [place] # (Auto) 0.6 (0.0-0.9) th/mm3 Eos # (Auto) 0.1 (0.0-0.4) th/mm3 Baso # (Auto) 0.1 (0.0-0.2) th/mm3 Comprehensive Metabolic Panel 07/25/18 Range/Units 09:00 Sodium 136 (136-145) meq/L Potassium 4.3 (3.5-5.1) meq/L Chloride 102 (98-107) meq/L Carbon Dioxide 27.3 (21.0-32.0) meq/L BUN 16 (7-18) mg/dL Creatinine 1.32 H (0.50-1.00) mg/dL Calcium 8.8 (8.5-10.1) mg/dL Intake and Output 07/26/18 07/26/18 07/26/18 06:59 14:59 22:59 Other: # Voids 3 Date of Last Bowel Movement 07/26/18 Weight 59.874 kg - Imaging and Cardiology Imaging: Impressions Carotid Doppler Study 07/25/18 00:00 CONCLUSION: 1. Right Internal Carotid Artery: Mild visible plaque without significant stenosis. 2. Left Internal Carotid Artery: Mild visible plaque without significant stenosis. Chest X-Ray 07/25/18 08:40 CONCLUSION: No acute cardiopulmonary process. Head CT 07/25/18 08:40 CONCLUSION: Negative CT Head non contrast. . Assessment and Plan - Assessment (1) Syncope and collapse Code(s): R55 - Syncope and collapse Status: Acute (2) Paroxysmal A-fib Code(s): I48.0 - Paroxysmal atrial fibrillation Status: Acute (3) Hypertension Code(s): I10 - Essential (primary) hypertension Status: Acute (4) Hyperlipidemia Code(s): E78.5 - Hyperlipidemia, unspecified Status: Acute (5) Hypothyroidism Code(s): E03.9 - Hypothyroidism, unspecified Status: Acute - Plan Patient having episodes of atrial fibrillation/flutter, asymptomatic. Continue anticoagulation with Eliquis. Continue Coreg and Cardizem Patient cleared to be discharged from a cardiac standpoint. Patient instructed to will follow up with her open hearth door liner in [facility] after discharge. Patient seen and evaluated by Dr. Gandhi who participated in care, management and decision-making. - Attending Attestation Patient seen and examined. I reviewed and agree with the evaluation and plan as presented. Continue beta ginette, diltiazem, and anticoagulation with Eliquis. DC home. F/u with her open hearth door liner soon after discharge.
[2018-07-27] MEDS ORDERED: Famotidine 20 MG Tablet PO SCH (09:00)
== END 2018-07-26 17:00 | disposition home or self-care (01) ==
LOC: NEPE 08:24 → NEDH 08:24 → NEPFCDU 15:52
PROVIDERS: ADMIT Hospitalist; ATTEND Hospitalist